=== PATIENT | male | born 1970 | race African-American/Black ===

== ENCOUNTER 2016-07-28 17:03 | Emergency (ER) | payer OTHER ==
[~2016-07-28 17:03] MED LIST: CARV12.52 PO; CHOL400C2 PO; CIPR250T30 PO; GABA-586 PO; GABA600T2 PO; HYDR-2666 PO; TAMS0.4C97 PO; UBID50CA PO
[2016-07-28 17:50] VITALS: BP 117/78
[2016-07-28] MEDS ORDERED: HYDROXYZINE IM 50 MG/ML VIAL. IM ONE (18:15)
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
[2016-07-28] MEDS ORDERED: HYDR50CA2 PO (18:19)
[2016-07-28] MEDS ORDERED: CLIN60GE TP (18:19)
== END 2016-07-28 18:32 | disposition home or self-care (01) ==
LOC: ER 17:03
DX: R21 Rash and other nonspecific skin eruption (principal); I25.2 Old myocardial infarction; I10 Essential (primary) hypertension; G89.29 Other chronic pain; Z88.8 Allergy status to other drugs, medicaments and biological substances; Z96.89 Presence of other specified functional implants
CPT/HCPCS: 96372; 99283; J3410

== ENCOUNTER 2017-04-05 11:38 | Inpatient (IN) | payer OTHER ==
[~2017-04-05] VITALS: Ht 188 cm; Wt 83.5 kg
[~2017-04-05 11:38] MED LIST changes: +CLIN60GE TP; -HYDR-2666 PO; +HYDR-2758 PO; +HYDR50CA2 PO
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
[2017-04-05] MEDS ORDERED: NITROGLYCERIN SUBLINGUAL 0.4 MG BOTTLE OF 25. SL PRN (12:00)
[2017-04-05] MEDS ORDERED: ASPIRIN CHEWABLE 81 MG TABLET. PO ONE (12:15)
[2017-04-05 12:22] LABS: BASO % 0 % (0-3); EOS % 1 % (0-3); HEMATOCRIT 43.5 % (39.0-53.0); HEMOGLOBIN 14.3 g/dL (13.0-17.5); LYMPH % 25 % (24-48); MEAN CORPUSCULAR HEMOGLOBIN 32 pg (25-35); MEAN CORPUSCULAR HGB CONC 33 g/dL (31-37); MEAN CORPUSCULAR VOLUME 97 fL (79-100); MONO % 9 % (0-9); NEUT % 64 % (31-73); PLATELET COUNT 196 x10^3/uL (140-400); RED BLOOD COUNT 4.51 x10^6/uL (4.30-5.70); WHITE BLOOD COUNT 3.8 x10^3/uL (4.0-11.0)
--- NOTE | 2017-04-05 12:30 | RAD ---
Indication shortness of breath. A single view chest was obtained. Comparison is made to an examination 12/25/2014. The heart and pulmonary vessels appear normal. The lungs are clear. Overall there has not been a significant change compared to the previous exam. Bipolar cardiac pacing device is noted. IMPRESSION: No acute or focal process. No significant change
[2017-04-05 12:36] LABS: PROTHROMBIN TIME PATIENT 12.3 SEC (11.7-14.0)
[2017-04-05 12:57] LABS: CALCIUM 9.6 mg/dL (8.5-10.1); CREATININE 0.8 mg/dL (0.7-1.3); GFR 125.4
[2017-04-05 13:02] LABS: ALBUMIN 3.9 g/dL (3.4-5.0); DIRECT BILIRUBIN 0.1 mg/dL (0.0-0.2); TOTAL BILIRUBIN 0.9 mg/dL (0.2-1.0); TOTAL PROTEIN 7.8 g/dL (6.4-8.2)
[2017-04-05 13:09] LABS: BILIRUBIN,URINE NEGATIVE (NEG); GLUCOSE,URINE NEGATIVE (NEG); NITRITE,URINE NEGATIVE (NEG); PROTEIN,URINE NEGATIVE (NEG-TRACE)
[2017-04-05 13:10] LABS: CREATINE KINASE 176 U/L (39-308)
[2017-04-05 13:15] LABS: BACTERIA,URINE FEW /HPF (0-FEW); BARBITURATES NEG (NEG); BENZODIAZEPINES NEG (NEG); CANNABINOIDS NEG (NEG); COCAINE NEG (NEG); METHADONE NEG (NEG); OPIATES NEG (NEG); PHENCYCLIDINE NEG (NEG); RBC,URINE OCC /HPF (0-2); SQUAMOUS EPITHELIAL CELL,UR FEW /LPF
[2017-04-05 13:17] LABS: CKMB MASS < 0.5 ng/mL (0.0-3.6)
[2017-04-05 13:20] VITALS: BP 112/78
[2017-04-05] MEDS ORDERED: ONDANSETRON PF 4 MG/2 ML VIAL. IV PRN (13:30)
[2017-04-05] MEDS ORDERED: ACETAMINOPHEN 325 MG TABLET. PO PRN (13:30)
--- NOTE | 2017-04-05 13:38 | EKG ---
[facility] [address] [place] [address] Test Date: 2017-04-05 Test Time: 11:43:41 Pat Name: MONSERRAT BEST Department: Room: Gender: M Phlebotomist Medical Lab Assistant: : 1970 Requested By: FAYE DUNCAN Order Number: [id number] Reading MD: Measurements Intervals [place] Rate: 73 P: 132 SC: 152 QRS: -171 QRSD: 84 T: 164 QT: 336 QTc: 373 Interpretive Statements SINUS RHYTHM ABNORMAL RIGHT SUPERIOR AXIS DEVIATION QRS(T) CONTOUR ABNORMALITY CONSISTENT WITH HIGH LATERAL INFARCT AGE UNDETERMINED T ABNORMALITY IN INFERIOR LEADS RI6.01 Unconfirmed report No previous ECG available for comparison
[2017-04-05] MEDS ORDERED: ASPIRIN ENTERIC COATED 81 MG TABLET.DR. PO SCH (15:30)
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
--- NOTE | 2017-04-05 16:15 | CARD ---
APPROVED REPORT EXAM: Two-dimensional and M-mode echocardiogram with Doppler and color Doppler. Other Information Quality : Good INDICATION Dyspnea Chest Pain 2D DIMENSIONS RVDd2.9 (2.9-3.5cm)Left Atrium(2D)3.0 (1.6-4.0cm) IVSd0.9 (0.7-1.1cm)Aortic Root(2D)2.8 (2.0-3.7cm) LVDd5.0 (3.9-5.9cm)LVOT Diameter2.0 (1.8-2.4cm) PWd0.9 (0.7-1.1cm)LVDs3.0 (2.5-4.0cm) FS (%) 30.0 %SV82.2 ml LVEF(%)60.0 (>50%) Aortic Valve AoV Peak Josue.128.1cm/sAoV VTI24.8cm AO Peak GR.6.6mmHgLVOT Peak Josue.90.9cm/s LVOT VTI 18.78cmAO Mean GR.4mmHg HENNA (VMAX)2.27vv9TKE (VTI)2.33cm2 Mitral Valve MV E Prrhkonj67.1cm/sMV DECEL VHFI925qu MV A Vkjhxgtj53.9cm/sMV OKT50om E/A Ratio1.3MVA (PHT)3.92cm2 TDI E/Lateral E'6.1E/Medial E'9.8 Tricuspid Valve TR P. Frrhyeof365tl/sRAP AFREFPJT3zuHb TR Peak Gr.40xzEdDFAA79dkOx Pulmonary Vein S1 Ouwnlxkc70.3cm/sD2 Vxbszlfb86.8cm/s LEFT VENTRICLE The left ventricle is normal size. There is normal left ventricular wall thickness. The left ventricu lar systolic function is normal. The Ejection Fraction is 55%. There is normal LV segmental wall srikanth on. The left ventricular diastolic function and filling is normal for age. RIGHT VENTRICLE The right ventricle is normal size. The right ventricular systolic function is normal. There is a pac emaker lead in the right ventricle. ATRIA The left atrium size is normal. A pacemaker is seen in the right atrium consistent with history. The right atrium size is normal. The interatrial septum is intact with no evidence for an atrial septal d efect or patent foramen ovale as noted on 2-D or Doppler imaging. AORTIC VALVE The aortic valve is normal in structure and function. Doppler and Color Flow revealed no significant aortic regurgitation. There is no significant aortic valvular stenosis. MITRAL VALVE The mitral valve is normal in structure and function. There is no evidence of mitral valve prolapse. There is no mitral valve stenosis. Doppler and Color-flow revealed trace mitral regurgitation. TRICUSPID VALVE The tricuspid valve is normal in structure and function. Doppler and Color Flow revealed mild tricusp id regurgitation. The PA pressure was estimated at 27 mmHg. There is no tricuspid valve stenosis. PULMONIC VALVE The pulmonary valve is normal in structure and function. Doppler and Color Flow revealed trace pulmon ic valvular regurgitation. There is no pulmonic valvular stenosis. GREAT VESSELS The aortic root is normal in size. The ascending aorta is normal in size. The IVC is normal in size a nd collapses >50% with inspiration. PERICARDIAL EFFUSION There is no evidence of significant pericardial effusion. Critical Notification Critical Value: No <Conclusion> The left ventricular systolic function is normal. The Ejection Fraction is 55%. There is normal LV segmental wall motion. A pacemaker wire is seen in the right atrium/ventricle consistent with history. Trace mitral regurgitation. Mild tricuspid regurgitation. The PA pressure was estimated at 27 mmHg. There is no evidence of significant pericardial effusion.
[2017-04-05] MEDS: PANTOPRAZOLE 40 MG TABLET.DR. PO SCH (16:40)
[2017-04-05 19:00] VITALS: BP 129/91
[2017-04-05] MEDS ORDERED: ZOLPIDEM 5 MG TABLET. PO PRN (21:00)
[2017-04-05] MEDS ORDERED: HYDROcodone/APAP 10/325 1 TAB TABLET PO PRN (21:00)
[2017-04-05] MEDS ORDERED: HYDROcodone/APAP 5/325MG 1 TAB TABLET PO PRN (21:00)
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
[2017-04-05] MEDS: CARVEDILOL 12.5 MG TABLET. PO SCH (21:45)
[2017-04-05] MEDS: GABAPENTIN 300 MG CAPSULE. PO SCH (21:46)
[2017-04-05 23:00] VITALS: BP 123/80
[2017-04-06 03:00] VITALS: BP 98/71
[2017-04-06 04:47] LABS: BASO % 0 % (0-3); EOS % 1 % (0-3); HEMATOCRIT 45.1 % (39.0-53.0); HEMOGLOBIN 14.9 g/dL (13.0-17.5); LYMPH % 23 % (24-48); MEAN CORPUSCULAR HEMOGLOBIN 32 pg (25-35); MEAN CORPUSCULAR HGB CONC 33 g/dL (31-37); MEAN CORPUSCULAR VOLUME 97 fL (79-100); MONO % 9 % (0-9); NEUT % 68 % (31-73); PLATELET COUNT 204 x10^3/uL (140-400); RED BLOOD COUNT 4.66 x10^6/uL (4.30-5.70); RED CELL DISTRIBUTION WIDTH 12.2 % (11.5-14.5); WHITE BLOOD COUNT 4.4 x10^3/uL (4.0-11.0)
[2017-04-06 05:46] LABS: CALCIUM 9.6 mg/dL (8.5-10.1); CREATININE 0.8 mg/dL (0.7-1.3); GFR 125.4; POTASSIUM 3.5 mmol/L (3.5-5.1)
[2017-04-06 07:00] VITALS: BP 98/68
--- NOTE | 2017-04-06 07:57 | PDOC ---
KELSEA MCKEON WAREHOUSE ADMINISTRATOR 04/06/17 0757: CARDIO Progress Notes Date and Time Date of Service 04/06/2017 Time of Evaluation 0745 Subjective Subjective: No Chest Pain, No shortness of breath, No Palpitations, No Dizziness, Other (No further CP overnight) Vitals Vitals Vital Signs Date Time Temp Pulse Resp B/P (MAP) Pulse Ox O2 Delivery O2 Flow Rate FiO2 04/06/17 03:00 97.4 71 20 98/71 (80) 98 Room Air 97.4 Weight Weight [ ] Laboratory Labs Laboratory Tests Test 04/05/17 12:02 04/05/17 12:35 04/05/17 13:00 04/05/17 19:30 White Blood Count 3.8 x10^3/uL (4.0-11.0) Red Blood Count 4.51 x10^6/uL (4.30-5.70) Hemoglobin 14.3 g/dL (13.0-17.5) Hematocrit 43.5 % (39.0-53.0) Mean Corpuscular Volume 97 fL (79-100) Mean Corpuscular Hemoglobin 32 pg (25-35) Mean Corpuscular Hemoglobin Concent 33 g/dL (31-37) Red Cell Distribution Width 12.0 % (11.5-14.5) Platelet Count 196 x10^3/uL (140-400) Neutrophils (%) (Auto) 64 % (31-73) Lymphocytes (%) (Auto) 25 % (24-48) Monocytes (%) (Auto) 9 % (0-9) Eosinophils (%) (Auto) 1 % (0-3) Basophils (%) (Auto) 0 % (0-3) Neutrophils # (Auto) 2.4 x10^3uL (1.8-7.7) Lymphocytes # (Auto) 1.0 x10^3/uL (1.0-4.8) Monocytes # (Auto) 0.3 x10^3/uL (0.0-1.1) Eosinophils # (Auto) 0.1 x10^3/uL (0.0-0.7) Basophils # (Auto) 0.0 x10^3/uL (0.0-0.2) Prothrombin Time 12.3 SEC (11.7-14.0) Prothromb Time International Ratio 1.0 (0.8-1.1) Sodium Level 142 mmol/L (136-145) Potassium Level 4.0 mmol/L (3.5-5.1) Chloride Level 103 mmol/L (98-107) Carbon Dioxide Level 31 mmol/L (21-32) Anion Gap 8 (6-14) Blood Urea Nitrogen 14 mg/dL (8-26) Creatinine 0.8 mg/dL (0.7-1.3) Estimated GFR (Cockcroft-Gault) 125.4 Glucose Level 92 mg/dL (70-99) Calcium Level 9.6 mg/dL (8.5-10.1) Magnesium Level 2.0 mg/dL (1.8-2.4) Total Bilirubin 0.9 mg/dL (0.2-1.0) Direct Bilirubin 0.1 mg/dL (0.0-0.2) Aspartate Amino Transf (AST/SGOT) 25 U/L (15-37) Alanine Aminotransferase (ALT/SGPT) 28 U/L (16-63) Alkaline Phosphatase 79 U/L (46-116) Creatine Kinase 176 U/L (39-308) Creatine Kinase MB (Mass) < 0.5 ng/mL (0.0-3.6) Creatine Kinase MB Relative Index 0.3 % (0-4) Troponin I Quantitative < 0.017 ng/mL (0.000-0.055) < 0.017 ng/mL (0.000-0.055) PS-Odu-L-Type Natriuretic Peptide 9 pg/mL (0-124) Total Protein 7.8 g/dL (6.4-8.2) Albumin 3.9 g/dL (3.4-5.0) Lipase 82 U/L (73-393) Thyroid Stimulating Hormone (TSH) 1.265 uIU/mL (0.358-3.74) Urine Collection Type Unknown Urine Color Yellow Urine Clarity Cloudy Urine pH 6.0 Urine Specific [place] 1.020 Urine Protein Negative mg/dL (NEG-TRACE) Urine Glucose (UA) Negative mg/dL (NEG) Urine Ketones (Stick) Negative mg/dL (NEG) Urine Blood Negative (NEG) Urine Nitrite Negative (NEG) Urine Bilirubin Negative (NEG) Urine Urobilinogen Dipstick 1.0 mg/dL (0.2 mg/dL) Urine Leukocyte Esterase Negative (NEG) Urine RBC Occ /HPF (0-2) Urine WBC 1-4 /HPF (0-4) Urine Squamous Epithelial Cells Few /LPF Urine Bacteria Few /HPF (0-FEW) Urine Mucus Slight /LPF Urine Opiates Screen Neg (NEG) Urine Methadone Screen Neg (NEG) Urine Barbiturates Neg (NEG) Urine Phencyclidine Screen Neg (NEG) Urine Amphetamine/Methamphetamine Neg (NEG) Urine Benzodiazepines Screen Neg (NEG) Urine Cocaine Screen Neg (NEG) Urine Cannabinoids Screen Neg (NEG) Urine Ethyl Alcohol Neg (NEG) Test 04/06/17 02:00 04/06/17 03:15 White Blood Count 4.4 x10^3/uL (4.0-11.0) Red Blood Count 4.66 x10^6/uL (4.30-5.70) Hemoglobin 14.9 g/dL (13.0-17.5) Hematocrit 45.1 % (39.0-53.0) Mean Corpuscular Volume 97 fL (79-100) Mean Corpuscular Hemoglobin 32 pg (25-35) Mean Corpuscular Hemoglobin Concent 33 g/dL (31-37) Red Cell Distribution Width 12.2 % (11.5-14.5) Platelet Count 204 x10^3/uL (140-400) Neutrophils (%) (Auto) 68 % (31-73) Lymphocytes (%) (Auto) 23 % (24-48) Monocytes (%) (Auto) 9 % (0-9) Eosinophils (%) (Auto) 1 % (0-3) Basophils (%) (Auto) 0 % (0-3) Neutrophils # (Auto) 3.0 x10^3uL (1.8-7.7) Lymphocytes # (Auto) 1.0 x10^3/uL (1.0-4.8) Monocytes # (Auto) 0.4 x10^3/uL (0.0-1.1) Eosinophils # (Auto) 0.1 x10^3/uL (0.0-0.7) Basophils # (Auto) 0.0 x10^3/uL (0.0-0.2) Troponin I Quantitative < 0.017 ng/mL (0.000-0.055) Sodium Level 143 mmol/L (136-145) Potassium Level 3.5 mmol/L (3.5-5.1) Chloride Level 103 mmol/L (98-107) Carbon Dioxide Level 29 mmol/L (21-32) Anion Gap 11 (6-14) Blood Urea Nitrogen 14 mg/dL (8-26) Creatinine 0.8 mg/dL (0.7-1.3) Estimated GFR (Cockcroft-Gault) 125.4 Glucose Level 64 mg/dL (70-99) Calcium Level 9.6 mg/dL (8.5-10.1) Triglycerides Level 49 mg/dL (0-150) Cholesterol Level 191 mg/dL (0-200) LDL Cholesterol, Calculated 133 mg/dL (0-100) VLDL Cholesterol, Calculated 10 mg/dL (0-40) Non-HDL Cholesterol Calculated 143 mg/dL (0-129) HDL Cholesterol 48 mg/dL (40-60) Cholesterol/HDL Ratio 4.0 Physical Exam HEENT: Neck Supple W Full Motion Chest: Symmetric LUNGS: Clear to Auscultation Heart: S1S2, RRR (SR no ectopies) Abdomen: Soft N/T Extremities: No Calf Tenderness Neurology: alert, oriented, follow commands Assessment Assessment 1. Atypical CP: likely from cough exacerbated by GERD. No further recurrence overnight, no rhythm ectopies. 2. HTN: controlled 3. CAD: remote [facility], unknown if stents were placed. Recent stress test 2 months ago and no notable recommendation for repeat [facility] accdg to him. 4. HLP: unmedicated 5. 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 [employer], normal functioning. device Recommendations 1. Restart statin. Slightly low BP likely false. Continue with home meds. Encourage home BP monitoring 2. Continue with secondary prevention 3. Continue with PPI 4. TTE with normal wall motion and EF. No MPI records yet. 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 Agree with [employer]PER[employer]'s assessment and plan. Chest pain atypical and noncardiac 2-D echo showed normal LV function without any wall motion abnormalities Okay for discharge from cardiac standpoint KELSEA MCKEON WAREHOUSE ADMINISTRATOR Apr 06, 2017 07:57 ROXANE MACHADO MD Apr 06, 2017 16:18
[2017-04-06] MEDS: CARVEDILOL 12.5 MG TABLET. PO SCH (08:00)
[2017-04-06] MEDS ORDERED: ASPIRIN ENTERIC COATED 81 MG TABLET.DR. PO SCH (08:00)
[2017-04-06] MEDS ORDERED: TAMSULOSIN 0.4 MG CAP.ER.24H. PO SCH (09:00)
[2017-04-06] MEDS: PANTOPRAZOLE 40 MG TABLET.DR. PO SCH (09:06)
[2017-04-06] MEDS: GABAPENTIN 300 MG CAPSULE. PO SCH (09:07)
[2017-04-06 11:00] VITALS: BP 102/72
[2017-04-06] MEDS ORDERED: FAMO40TA57 PO (12:30)
[2017-04-06] MEDS ORDERED: POTASSIUM CHLORIDE 20 MEQ TABLET.ER. PO ONE (12:30)
[2017-04-06] MEDS ORDERED: ATOR20TA58 PO (12:34)
[2017-04-06] MEDS ORDERED: ATORVASTATIN CALCIUM 20 MG TABLET PO SCH (21:00)
== END 2017-04-06 13:20 | disposition home or self-care (01) | DRG 392 ==
LOC: ER 11:38 → 5 NORTH 12:45
PROVIDERS: ADMIT Internal Medicine; ATTEND Internal Medicine
DX: K21.9 Gastro-esophageal reflux disease without esophagitis (principal); I69.354 Hemiplegia and hemiparesis following cerebral infarction affecting left non-dominant side; R07.89 Other chest pain; I25.10 Atherosclerotic heart disease of native coronary artery without angina pectoris; E78.5 Hyperlipidemia, unspecified; I10 Essential (primary) hypertension; F32.9 Major depressive disorder, single episode, unspecified; M19.90 Unspecified osteoarthritis, unspecified site; G89.29 Other chronic pain; M54.9 Dorsalgia, unspecified; Z79.82 Long term (current) use of aspirin; I25.2 Old myocardial infarction; Z82.49 Family history of ischemic heart disease and other diseases of the circulatory system; Z95.0 Presence of cardiac pacemaker; Z88.8 Allergy status to other drugs, medicaments and biological substances
CPT/HCPCS: 36415; 71010; 80048; 80061; 80076; 80307; 81001; 82553; 83690; 83735; 83880; 84443; 84484; 85025; 85610; 93005; 93306; 99285-25; G0479

== ENCOUNTER 2017-06-15 01:51 | Emergency (ER) | payer OTHER ==
[2017-06-15] MEDS: LIDO:MAALOX:DONNATAL 1:1:1 15 ML SINGLE DOSE SWSW (02:39)
[2017-06-15] MEDS: FAMOTIDINE 20 MG/2 ML VIAL IVP (02:39)
[2017-06-15 02:47] LABS: ADD MAN DIFF? NO
[2017-06-15 02:55] LABS: BASO % 0 % (0-3); EOS % 2 % (0-3); HEMOGLOBIN 14.2 g/dL (13.0-17.5); LYMPH # 1.1 x10^3/uL (1.0-4.8); LYMPH % 21 % (24-48); MEAN CORPUSCULAR HEMOGLOBIN 32 pg (25-35); MEAN CORPUSCULAR HGB CONC 33 g/dL (31-37); MEAN CORPUSCULAR VOLUME 97 fL (79-100); MONO % 8 % (0-9); NEUT % 69 % (31-73); PLATELET COUNT 191 x10^3/uL (140-400); RED BLOOD COUNT 4.43 x10^6/uL (4.30-5.70); RED CELL DISTRIBUTION WIDTH 11.8 % (11.5-14.5); WHITE BLOOD COUNT 5.3 x10^3/uL (4.0-11.0)
[2017-06-15] MEDS: IV NORMAL SALINE 1000ML BAG 1,000 ML IV (03:15)
[2017-06-15 03:16] LABS: ANION GAP 11 (6-14); BLOOD UREA NITROGEN 11 mg/dL (8-26); CALCIUM 9.1 mg/dL (8.5-10.1); CARBON DIOXIDE 26 mmol/L (21-32); CHLORIDE 105 mmol/L (98-107); CREATININE 0.7 mg/dL (0.7-1.3); GFR 146.3; GLUCOSE 102 mg/dL (70-99); POTASSIUM 5.3 mmol/L (3.5-5.1); SODIUM 142 mmol/L (136-145)
[2017-06-15] MEDS: HYDROmorphone 2 MG/ML VIAL IV/SQ (03:16)
[2017-06-15] MEDS: ONDANSETRON PF 4 MG/2 ML VIAL. IV (03:16)
[2017-06-15 03:22] LABS: ALBUMIN 4.1 g/dL (3.4-5.0); ALK PHOS 97 U/L (46-116); ALT (SGPT) 34 U/L (16-63); AST (SGOT) 41 U/L (15-37); DIRECT BILIRUBIN < 0.1 mg/dL (0.0-0.2); TOTAL BILIRUBIN 0.9 mg/dL (0.2-1.0); TOTAL PROTEIN 7.5 g/dL (6.4-8.2)
[2017-06-15 03:25] LABS: LACTIC ACID 0.9 mmol/L (0.4-2.0)
[2017-06-15 03:31] LABS: TROPONINI < 0.017 ng/mL (0.000-0.055)
[2017-06-15] MEDS ORDERED: CONTRAST GIVEN MC (04:00)
[2017-06-15] MEDS: IOHEXOL 300 MG/ML 100ML VIAL. IV (04:16)
[2017-06-15 04:59] LABS: BILIRUBIN,URINE NEGATIVE (NEG); GLUCOSE,URINE NEGATIVE (NEG); NITRITE,URINE NEGATIVE (NEG); PH,URINE 6.5; PROTEIN,URINE NEGATIVE (NEG-TRACE)
[2017-06-15 05:13] LABS: BACTERIA,URINE 0 /HPF (0-FEW); RBC,URINE 0 /HPF (0-2); SQUAMOUS EPITHELIAL CELL,UR FEW /LPF; WBC,URINE OCC /HPF (0-4)
== END 2017-06-15 05:11 | disposition home or self-care (01) ==
LOC: ER 01:51
DX: R10.13 Epigastric pain (principal); I10 Essential (primary) hypertension; I25.2 Old myocardial infarction; Z95.0 Presence of cardiac pacemaker; G89.29 Other chronic pain; Z88.8 Allergy status to other drugs, medicaments and biological substances
CPT/HCPCS: 36415; 74177; 80048; 80076; 81001; 83605; 83690; 84484; 85025; 93005; 96361; 96374; 96375; 99285-25; J1170; J2405; J7030; Q9967; S0028

== ENCOUNTER 2017-08-12 03:06 | Emergency (ER) | payer OTHER | END 2017-08-12 04:12 | disposition home or self-care (01) | LOC: ER 03:06 | DX: L25.9 Unspecified contact dermatitis, unspecified cause (principal); I10 Essential (primary) hypertension; I25.2 Old myocardial infarction; Z95.0 Presence of cardiac pacemaker; G89.29 Other chronic pain; Z88.8 Allergy status to other drugs, medicaments and biological substances | CPT/HCPCS: 99283 ==

== ENCOUNTER 2017-09-15 15:53 | Emergency (ER) | payer OTHER ==
[2017-09-15] MEDS: IBUPROFEN 800 MG TABLET. PO (16:52)
[2017-09-15 17:13] LABS: BILIRUBIN,URINE NEGATIVE (NEG); CLARITY,URINE CLEAR; COLOR,URINE YELLOW; GLUCOSE,URINE NEGATIVE (NEG); NITRITE,URINE NEGATIVE (NEG); PROTEIN,URINE NEGATIVE (NEG-TRACE)
[2017-09-15 17:17] LABS: BACTERIA,URINE 0 /HPF (0-FEW); RBC,URINE 0 /HPF (0-2); SQUAMOUS EPITHELIAL CELL,UR OCC /LPF; WBC,URINE OCC /HPF (0-4)
[2017-09-15 17:58] LABS: AGAP ISTAT 18 mmol/L (6-14); BUN ISTAT 12 mg/dL (8-26); CHLORIDE ISTAT 100 mmol/L (98-110); CREATININE ISTAT 1.1 mg/dL (0.5-1.4); GLUCOSE ISTAT 142 mg/dL (70-99); HEMATOCRIT ISTAT 45 % (37-52); HEMOGLOBIN ISTAT 15.3 g/dL (14-18); ION CA ISTAT 1.23 mmol/L (1.13-1.32); POTASSIUM ISTAT 3.9 mmol/L (3.5-5.0); SODIUM ISTAT 139 mmol/L (135-145); TOT CO2 ISTAT 27 mmol/L (23-32)
== END 2017-09-15 18:20 | disposition home or self-care (01) ==
LOC: ER 15:53
DX: R30.0 Dysuria (principal); G89.29 Other chronic pain; E78.00 Pure hypercholesterolemia, unspecified; F12.10 Cannabis abuse, uncomplicated; Z95.0 Presence of cardiac pacemaker; Z88.5 Allergy status to narcotic agent; Z88.6 Allergy status to analgesic agent; Z88.8 Allergy status to other drugs, medicaments and biological substances
CPT/HCPCS: 36415; 80047; 81001; 85014; 85018; 99283

== ENCOUNTER 2018-01-18 00:24 | Emergency (ER) | payer OTHER | END 2018-01-18 00:45 | disposition home or self-care (01) | LOC: ER 00:45 | DX: K04.7 Periapical abscess without sinus (principal); K02.9 Dental caries, unspecified; M19.90 Unspecified osteoarthritis, unspecified site; E78.00 Pure hypercholesterolemia, unspecified; G89.29 Other chronic pain; Z95.0 Presence of cardiac pacemaker; Z88.8 Allergy status to other drugs, medicaments and biological substances | CPT/HCPCS: 99283 ==

== ENCOUNTER 2020-09-13 17:07 | Emergency (ER) | payer MEDICAID, OTHER ==
[~2020-09-13] VITALS: Ht 190.5 cm; Wt 84.0 kg
[~2020-09-13 17:07] MED LIST changes: +ACYC800T PO; +AMOX875T PO; +ATOR20TA58 PO; +CARV12.511 PO; -CARV12.52 PO; +FAMO40TA57 PO; -GABA-586 PO; +GABA300C18 PO; -GABA600T2 PO; +GABA600T7 PO; -HYDR-2758 PO; +HYDR-2761 PO; +HYDR-3164 PO; +HYDR50CA PO; +ONDA4TAB10 SL; +TRIA15OI TP
[2020-09-13 18:10] VITALS: BP 104/74
[2020-09-13] MEDS ORDERED: CHLO15MO2 SWSP (18:36)
[2020-09-13] MEDS ORDERED: CLIN150C15 PO (18:36)
[2020-09-13] MEDS ORDERED: NAPR-514 PO (18:37)
--- NOTE | 2020-09-13 18:37 | ED.ADGEN ---
Past Medical History Past Medical History: Arthritis, Arrhythmia, High Cholesterol, Other Additional Past Medical Histor: CHRONIC PAIN, Past Surgical History: Angioplasty, Other Additional Past Surgical Histo: PACEMAKER/DEFIB, Smoking Status: Former Smoker Alcohol Use: None Drug Use: Marijuana General Adult EDM: Chief Complaint: DENTAL PROBLEM HPI: HPI: Patient is a 50 year old AA male who presents to the emergency department with complaints of anterior lower dental pain with frontal gingival swelling and tenderness that began yesterday. Patient denies any bleeding or drainage from his gums. He denies any injury. Patient denies any fever, cough, sore throat, shortness of breath, wheezing, chest pain, abdominal pain, nausea, vomiting, diarrhea, body aches, or fatigue. The patient also denies any ear pain. He currently rates his dental pain a 10 out of 10 on pain scale, he denies any alleviating factors. Pain is worse with palpation and movement. Review of Systems: Review of Systems: Complete ROS is negative unless otherwise noted in HPI. Allergies: Allergies: Allergies Coded Allergies Type Severity Reaction Last Updated Verified lisinopril Allergy Severe Swelling 09/25/13 Yes dextromethorphan Allergy Intermediate Swelling 12/26/14 Yes diphenhydramine Allergy Intermediate Swelling 09/25/13 Yes phenylephrine Allergy Intermediate Swelling 12/26/14 Yes Physical Exam: PE: See Above Constitutional: Well developed, well nourished, no acute distress, non-toxic appearance. [] HENT: Normocephalic, atraumatic, bilateral external ears normal, nose normal; diffuse erythema and edema of the frontal gums of the mandible with no palpable or visible dental abscess, large amount of dental decay and broken teeth present. [] Eyes: PERRLA, EOMI, conjunctiva normal, no discharge. [] Neck: Normal range of motion, supple, nontender, no stridor. [] Cardiovascular:Heart rate regular rhythm Lungs & Thorax: Respirations even and unlabored, no retractions, no respiratory distress Skin: Warm, dry, no erythema, no rash. [] Extremities: No cyanosis, ROM intact, no edema. [] Neurologic: Alert and oriented X 3, no focal deficits noted. [] Psychologic: Affect normal, judgement normal, mood normal. [] Current Patient Data: Vital Signs: Vital Signs Date Time Temp Pulse Resp B/P (MAP) Pulse Ox O2 Delivery O2 Flow Rate FiO2 09/13/20 17:56 98.3 80 20 104/74 (84) 99 Room Air 98.3 EKG: EKG: [] Heart Score: C/O Chest Pain: No Risk Scores: Score 0 - 3: 2.5% MACE over next 6 weeks - Discharge Home Score 4 - 6: 20.3% MACE over next 6 weeks - Admit for Clinical Observation Score 7 - 10: 72.7% MACE over next 6 weeks - Early Invasive Strategies Radiology/Procedures: Radiology/Procedures: [] Course & Med Decision Making: Course & Med Decision Making Pertinent Labs and Imaging studies reviewed. (See chart for details) [] Dragon Disclaimer: Dragon Disclaimer: This electronic medical record was generated, in whole or in part, using a voice recognition dictation system. Departure Departure Impression: Primary Impression: Infected dental caries Additional Impressions: Gingivitis Dentalgia Disposition: 01 DC HOME SELF CARE/HOMELESS Condition: STABLE Referrals: UNKNOWN PCP NAME (PCP) Patient Instructions: Dental Abscess, Dental Caries, Gingivitis, [id number] Additional Instructions: Fill prescription(s) and use as directed. Follow up with dentist using the referral list provided. Return to the ER if symptoms worsen. Scripts Naproxen (NAPROXEN) 500 Mg Tablet 1 TAB PO BID PRN for PAIN for 10 Days, #20 TAB 0 Refills Prov: JADE DAMON APRN 09/13/20 Chlorhexidine Gluconate (PERIDEX) 15 Ml Mouthwash 15 ML SWSP BID for 10 Days, #1 BOT 0 Refills [place] your teeth before use of this medication and rinse thoroughly after using the medication as it may stain your teeth. Prov: JADE DAMON APRN 09/13/20 Clindamycin Hcl (CLINDAMYCIN HCL) 150 Mg Capsule 450 MG PO TID for 7 Days, #63 CAP 0 Refills Prov: JADE DAMON APRN 09/13/20 Problem Qualifiers JADE DAMON APRN Sep 13, 2020 18:37
[2020-09-13] MEDS ORDERED: HYDROcodone/APAP 5/325MG 1 TAB TABLET ONE (18:41)
[2020-09-13] MEDS ORDERED: HYDROcodone/APAP 5/325MG 1 TAB TABLET PO ONE (19:15)
== END 2020-09-13 18:50 | disposition home or self-care (01) ==
LOC: ER 17:07
DX: K02.9 Dental caries, unspecified (principal); K05.10 Chronic gingivitis, plaque induced; K08.89 Other specified disorders of teeth and supporting structures; M19.90 Unspecified osteoarthritis, unspecified site; E78.00 Pure hypercholesterolemia, unspecified; G89.29 Other chronic pain; F12.90 Cannabis use, unspecified, uncomplicated; Z98.890 Other specified postprocedural states; Z87.891 Personal history of nicotine dependence; Z95.0 Presence of cardiac pacemaker; Z88.8 Allergy status to other drugs, medicaments and biological substances; Z88.6 Allergy status to analgesic agent
CPT/HCPCS: 99283